=== PATIENT | female | born 1945 | race African-American/Black ===

== ENCOUNTER 2018-01-16 15:50 | Inpatient (IN) | payer OTHER ==
[~2018-01-16] VITALS: Ht 165.1 cm; Wt 76.5 kg
--- NOTE | ~2018-01-16 | EKG ---
[address] [address] ELECTROCARDIOGRAM REPORT Name: MCKAYLA OWENDOMENICA MCGILL Room #: 464- ADM IN M.R.#: [id number] Admission: 01/16/18 Attend Phys: Bon Villarreal MD Discharge: Date of : 41 Report #: [id number] THIS REPORT FOR: //name// [facility] ED Test Date: 2018-01-16 Test Time: 16:18:37 Pat Name: TRINA YOUNG Department: Room: [facility] Gender: F Medical Staffing Coordinator: kandis : 1945 Requested By: Leonor Hughes Order Number: [id number] MD: Rajesh Redmond Measurements Intervals [place] Rate: 94 P: 60 HI: 121 QRS: 24 QRSD: 73 T: 60 QT: 367 QTc: 459 Interpretive Statements Sinus rhythm Consider v2v3 reversal Compared to ECG 11/12/2013 20:09:04 Sinus tachycardia no longer present Electronically Signed On 01-16-2018 23:56:51 [employer] by Rajesh Redmond [email or web address] <ELECTRONICALLY SIGNED> By: Rajesh Redmond MD 01/16/18 [id number] 161 Rajesh Redmond MD /EPI
[~2018-01-16 15:50] MED LIST: ATACAND32 MG PO; CARVEDILOL25 MG PO; CATAPRES0.2 MG PO; HYDROCODONE-AP1 EAC6 PO; NEURONTIN 300300 M1 PO; NORCO 5-325 TA1 EACH PO
[2018-01-16 15:51] VITALS: BP 128/93
[2018-01-16] MEDS ORDERED: OXYCONTIN10 M1 PO (16:51)
[2018-01-16 17:13] LABS: HEMOGLOBIN 12.4 gm/dL (12.0-15.0); MCHC 32.7 g/dL (28.0-37.0)
[2018-01-16 17:15] LABS: ABSOLUTE NEUTROPHILS 9.6 thou/uL (1.4-8.2); BASOPHILS 0.4 % (0.0-2.0); EOSINOPHILS 1.4 % (0.0-3.0); HEMATOCRIT 38.1 % (37.0-47.0); MCH 29.6 pg (26.0-34.0); MCV 90.4 fL (80.0-100.0); MONOCYTES 8.3 % (1.0-8.0); PLATELET COUNT 218 thou/uL (150-400); POLYS 79.9 % (36.0-66.0); RBC 4.21 mil/uL (4.20-5.00); RDW 14.2 % (10.5-14.5)
[2018-01-16 17:22] LABS: ANION GAP 8 mmol/L (7-16); BUN 26 mg/dL (7-18); CALCIUM 9.1 mg/dL (8.5-10.1); CHLORIDE 103 mmol/L (98-107); CO2 26 mmol/L (21-32); CREATININE 1.4 mg/dL (0.6-1.0); GLUCOSE 112 mg/dL (74-106); POTASSIUM 4.8 mmol/L (3.5-5.1); SODIUM 137 mmol/L (136-145)
[2018-01-16 17:30] LABS: ALBUMIN 3.6 g/dL (3.4-5.0); SGOT 22 U/L (15-37); SGPT 25 U/L (30-65); TOTAL BILIRUBIN 0.4 mg/dL (<0.1-1.0); TOTAL PROTEIN 7.5 g/dL (6.4-8.2); TROPONIN-I <0.06 ng/mL (<0.06)
[2018-01-16 18:51] LABS: URINE BILIRUBIN NEGATIVE (Negative); URINE BLOOD NEGATIVE (Negative); URINE CLARITY CLEAR; URINE COLOR YELLOW; URINE GLUCOSE-RANDOM* NEGATIVE (Negative); URINE KETONES NEGATIVE (Negative); URINE LEUKOCYTES NEGATIVE (Negative); URINE NITRITE NEGATIVE (Negative); URINE PROTEIN (DIPSTICK) NEGATIVE (Negative); URINE SPECIFIC GRAVITY >= 1.030 (1.005-1.035); URINE UROBILINOGEN 0.2 E.U./dl (0.2-1.0)
[2018-01-16 21:45] VITALS: BP 154/83
[2018-01-16 21:56] VITALS: BP 154/83
[2018-01-16] MEDS ORDERED: NORVASC10 MG PO (22:22)
[2018-01-16] MEDS ORDERED: VITAMINC500 PO (22:22)
[2018-01-16] MEDS ORDERED: CENTRUM SILVER1 EAC4 PO (22:23)
[2018-01-16] MEDS ORDERED: ZYRTEC 10 MG TA10 MG PO (22:23)
[2018-01-16] MEDS ORDERED: ASPIRIN81 M2 PO (22:23)
[2018-01-16] MEDS ORDERED: CYMBALTA60 MG PO (22:24)
[2018-01-16] MEDS ORDERED: COLCHICINE0.6 M1 PO (22:24)
[2018-01-16] MEDS ORDERED: LASIX 20 MG TAB20 MG PO (22:24)
[2018-01-16] MEDS ORDERED: NORTRIPTYLINE H50 MG PO (22:26)
[2018-01-16] MEDS ORDERED: DIOVAN160 MG PO (22:28)
[2018-01-16] MEDS ORDERED: CRESTOR20 MG PO (22:28)
[2018-01-16] MEDS ORDERED: OXYCODONE HCL10 MG PO (22:28)
[2018-01-16] MEDS ORDERED: ZANAFLEX4 MG PO (22:29)
[2018-01-16 23:49] VITALS: BP 155/90
[2018-01-17 06:04] LABS: HEMATOCRIT 37.8 % (37.0-47.0); HEMOGLOBIN 11.9 gm/dL (12.0-15.0); MCH 29.2 pg (26.0-34.0); MCHC 31.4 g/dL (28.0-37.0); RBC 4.07 mil/uL (4.20-5.00); RDW 14.5 % (10.5-14.5); WBC 8.7 thou/uL (4.0-11.0)
[2018-01-17 06:26] LABS: CALCIUM 8.9 mg/dL (8.5-10.1); POTASSIUM 4.8 mmol/L (3.5-5.1)
[2018-01-17 15:56] VITALS: BP 120/68
[2018-01-17 19:33] VITALS: BP 111/62
[2018-01-18 04:06] VITALS: BP 138/77
[2018-01-18 08:19] VITALS: BP 164/98
[2018-01-18 16:22] VITALS: BP 142/88
[2018-01-18 19:15] VITALS: BP 158/91
[2018-01-19 04:32] VITALS: BP 119/81
[2018-01-19 07:22] VITALS: BP 144/76
[2018-01-19 11:12] VITALS: BP 144/76
[2018-01-20 10:54] VITALS: BP 144/76
== END 2018-01-19 17:01 | disposition home health service (06) | DRG 551 ==
LOC: ER 15:50 → 4W 19:18 → EROBS 19:18 → 4W 22:15 → ENTRNSPT 01-19 16:43 → 4W 01-19 17:01
PROVIDERS: Nurse Practitioner Family; Physician Assistant
DX: S16.1XXA Strain of muscle, fascia and tendon at neck level, initial encounter (principal); N17.0 Acute kidney failure with tubular necrosis; S00.83XA Contusion of other part of head, initial encounter; I10 Essential (primary) hypertension; M19.90 Unspecified osteoarthritis, unspecified site; I25.10 Atherosclerotic heart disease of native coronary artery without angina pectoris; F32.9 Major depressive disorder, single episode, unspecified; M25.511 Pain in right shoulder; W01.0XXA Fall on same level from slipping, tripping and stumbling without subsequent striking against object, initial encounter; Y93.89 Activity, other specified; Y92.89 Other specified places as the place of occurrence of the external cause; Y99.8 Other external cause status; Z95.5 Presence of coronary angioplasty implant and graft; Z79.899 Other long term (current) drug therapy; Z88.5 Allergy status to narcotic agent; Z88.8 Allergy status to other drugs, medicaments and biological substances
CPT/HCPCS: 10045